=== PATIENT | male | born 1990 | race African-American/Black ===

== ENCOUNTER 2024-04-06 16:19 | Emergency (ER) | payer SELFPAY ==
[2024-04-06 16:23] VITALS: BP 154/79; PULSE 74; RESP 16; TEMP 36.2; O2SAT 100
--- NOTE | 2024-04-06 16:23 | ED.GENADUL_ITS ---
Discharge Plan Disposition Patient Disposition: Home Condition: Stable Discharge Details Clinical Impression: Rhabdomyolysis, Hematuria Primary Care Provider: Unknown,Unknown ED Provider: Shreyas Garcia Home Meds and New Rx's Prescriptions: No Action No Known Home Meds Discharge Instructions Instructions: Rhabdomyolysis, Blood in Urine (Hematuria), Adult ED Additional Instructions: You were seen in the emergency department for your 1 for lower abdominal trauma last week following on a football cleat and then repeated trauma at a football game yesterday. He have some blood in your urine but there does not appear to be any acute hollow or solid abdominal organ injury on your CT scan, your bladder is not perforated. You likely have some contusion to structures around the bladder or kidneys with some seepage of blood into the genitourinary system. He had some evidence of rhabdomyolysis which is when your body is exhausted from exertion, and it starts eat your own muscle as a source of energy rather than glucose, protein or fats. The treatment for this is aggressive hydration which we performed with 3 L of IV fluids today with improvement of your c ondition. Please try to stay well-hydrated the next few days, take it easy try to avoid further abdominal trauma until your hematuria or dark urine resolves. Please return to the emergency department for severe increase in flank or abdominal pain especially with continued dark urine despite aggressive hydration, any fevers, nausea or vomiting or profound weakness. Referrals: [facility] [Provider Group] Discharge Data Discharge Date/Time-TO BE ENTERED AT DEPARTURE: 04/06/24 22:23 HPI General Date/Time Provider Initiated Documentation: 04/06/24 16:23 . HPI Narrative: 33 year-old male presents to ED today by POV/ambulating with a chief complaint of lower abdominal pain, dark colored urine with onset after rough tackle in football game yesterday- the prior week he had also fallen onto another players football cleat to his lower abdomen- thought nothing of it at the time and improved, but now had additional trauma to the area at yesterdays game. Quality described as generalized lower abdominal pain- very dark urine, no radiation to fever, severe flank pain, nausea/vomiting, dysuria, new sexual partners, bowel changes. Severity is described as moderate. Palliating factors include nothing attempted. Provoking factors include nothing specific. Events leading up to the incident/Associated Symptoms: Patient denies history of sickle cell disease, denies prior kidney or bladder issues. Patient not anticoagulated. Related Data Home Medications ?Medication ?Instructions ?Recorded ?Confirmed Unknown [No Known Home Meds] 04/06/24 04/06/24 Review of Systems All systems reviewed & are unremarkable except as noted in HPI and below Exam Narrative Exam Narrative: GENERAL APPEARANCE: Well-nourished, non-toxic, awake and alert, atraumatic, no acute distress. SKIN: Warm, normal for ethnicity, dry, intact, without rashes/lesions/ulcer ations. HEAD: Normocephalic, atraumatic, normal hair distribution for gender/age. EYES: Normal conjunctiva, no exudates on lids/lashes. ENT: Nares patent, no circumoral cyanosis, no facial swelling NECK: Supple, trachea midline, painless cervical ROM. LUNGS/CHEST: Lungs CTA bilaterally- no rhonchi/rales/wheezes diffusely, non- labored respirations, normal A/P diameter, symmetrical expansion, no chest wall deformity HEART (CV/PV): Regular rate and rhythm without murmur, no peripheral edema, no JVD. ABDOMEN: Soft, non-distended, no guarding, R CVA tenderness, negative Black's, no Rovsing's, mild R lower abdominal tenderness. MSK: Normal ROM, no swelling/deformity to bilateral UEs or LEs, moving all extremities without weakness, no cyanosis, spine midline without tenderness, normal curvature. NEURO: Mental Status AAOx4 - alert to person, place, time, events No facial droop, no forehead involvement. Motor: No focal weakness - strength 5/5 in bilateral UEs and LEs, proximal and distal, symmetric. Sensory: sensation intact to light touch globally. Gait normal: patient ambulated without ataxia into ED room. PSYCH: euthymic, cooperative, pleasant, appropriate speech Medical Decision Making This dictation utilizes [id number] dictation software and may contain unedited grammatical errors. 33 year-old male presents to ED today by POV/ambulating with a chief complaint of lower abdominal pain, dark colored urine with onset after rough tackle in football game yesterday- the prior week he had also fallen onto another players football cleat to his lower abdomen- thought nothing of it at the time and improved, but now had additional trauma to the area at yesterdays game. Quality described as generalized lower abdominal pain- very dark urine, no radiation to fever, severe flank pain, nausea/vomiting, dysuria, new sexual partners, bowel changes. Severity is described as moderate. Palliating factors include nothing attempted. Provoking factors include nothing specific. Events leading up to the incident/Associated Symptoms: Patient denies history of sickle cell disease, denies prior kidney or bladder issues. Patients' medical history: noncontributory - otherwise healthy. Family and social history: very active, significant physical exertion often. Pertinent exam findings / vital signs include right-sided lower abdominal tenderness suprapubic tenderness, mild right CVA tenderness to percussion, nonperitoneal abdomen, benign cardiopulmonary exam, neuro intact, nontoxic. Differential / pathologies of concern include bladder rupture, renal contusion, rhabdomyolysis, sickle cell, generalized abdominal contusion. Diagnostic studies of: -CBC, lactate, CMP, lipase, UA, type and screen, CK > repeat CK and UA, NG/GC send out. CT Renal wo. -CBC shows no anemia, no leukocytosis-do not suspect hemorrhage, platelet count normal -Lactate negative - do not suspect perforated abdominal organ or -CMP shows mildly elevated creatinine at 1.4, LFTs within normal limits -Lipase negative -CK initially elevated to 450s, repeat 353 > mild rhabdomyolysis -initial UA has nitrites > reflex to STI testing -repeat UA shows clearing of all abnormalities, improvement of specific gravity, no nitrites -CT renal without acute abnormality Interventions of: -3 L IV fluids of 1 dose IV ceftriaxone for empiric UTI coverage. ED Course/Assessment/Plan: 33-year-old male patient presents after lower abdominal trauma falling on a football cleat last week during a game, does significant physical activity outdoors in the heat, was playing in another football game last night suffered a few rough tackle is now having very dark urine, CT is reassuring for no acute abnormality or hydronephrosis of the kidneys, no kidney stone is seen, his initial labs showed elevated CK indicating mild rhabdomyolysis and he was treated with aggressive fluid resuscitation with improvement of both his urine and CK, discontinued antibiotics at that time with repeat UA being benign, he has reassuring lab for no significant bleeding or infection, stressed staying well-hydrated and strict return criteria for no clearance of dark urine with continued flank pain. Findings not consistent with sepsis, perforated abdominal viscous, pyelo/hydronephrosis. Disposition of Rhabdomyolysis. Patient verbalized understanding of the plan and return to ED criteria and engaged in shared decision making. Medical Records Medical records reviewed: Yes I reviewed the patient's medical records. Imaging Data Radiologic Study: Attestation: I personally reviewed and interpreted this imaging study as follows: Imaging: CT Scan Radiologist's impression: Exam: CT Abdomen And Pelvis With Contrast Exam date and time: 04/06/2024 6:01 PM Age: 33 years old Clinical indication: Patient HX: Hematuria from trauma, football tackle TECHNIQUE: Imaging protocol: Computed tomography of the abdomen and pelvis with contrast. COMPARISON: No relevant prior studies available. FINDINGS: Lungs: Lung bases clear. Diaphragm: Elevation of the right hemidiaphragm, nonspecific but unusual in a patient of this age. Liver: Normal appearing liver. Gallbladder and biliary ducts: Gallbladder collapsed and not well evaluated but grossly unremarkable, as seen. No calcified gallstones seen. No biliary dilatation. Pancreas: Normal appearing pancreas. Spleen: Normal appearing spleen. Adrenal glands: Normal appearing adrenal glands. Kidneys and ureters: Normal appearing kidneys. No hydronephrosis. No perinephric edema or perinephric fluid. No ureterectasis or obstructing ureteral stones. Stomach and bowel: No oral contrast. Stomach partially decompressed. No small bowel dilatation to suggest obstruction. Colon largely well evacuated of fecal material. No evidence of diverticulitis or colitis. Appendix: Normal appendix. Intraperitoneal space: No gross ascites or free air. Vasculature: Normal caliber abdominal aorta. Lymph nodes: No pathologically enlarged mesenteric, retroperitoneal, or pelvic sidewall lymph nodes. Urinary bladder: Urinary bladder partially collapsed but grossly unremarkable, as seen. Reproductive: Normal-appearing prostate gland and seminal vesicles. Bones/joints: Focal sclerosis and bony irregularity along the anterior aspect of the right 4th and 5th ribs adjacent to the costochondral junctions with an appearance suggesting incompletely healed rib fractures. Well corticated defect through the tip of the left L4 transverse process suggesting an old fracture or possibly a developmental appearance, images 55 of series 4 and 39 of series 5. No acute fracture seen among the bones of the abdomen or pelvis. Soft tissues: No significant ventral or inguinal hernia. IMPRESSION: 1. No acute visceral or bony injury seen in the abdomen or pelvis. 2. Incompletely healed subacute-old fractures through the anterolateral aspect of the right 4th and 5th ribs adjacent to the costochondral junctions. Dictated and Authenticated by: Jose Gao MD. Lab Data Lab results reviewed: Yes I reviewed the patient's lab results. Labs: 04/06/24 16:27 Urine - Reflex from Ua Urine Culture - Final Gram Positive Myla,Mixed Laboratory Tests Range/Units 04/06/24 04/06/24 04/06/24 16:27 16:52 20:38 WBC (4.4-10.8) 10^3/uL 6.82 RBC (4.36-5.78) 10^6/uL 5.06 Hgb (13.5-17.5) g/dL 15.1 Hct (40.0-50.0) % 43.5 MCV (80-95) fL 86 MCH (27.0-33.0) pg 29.8 MCHC (32.0-36.0) % 34.7 RDW (11.8-14.1) % 11.7 L Plt Count (130-400) 10^3/uL 212 MPV (8.0-11.0) fL 10.0 Immature Gran % % 0.3 Neutrophils % % 62.6 Lymphocytes % % 30.5 Monocytes % % 5.6 Eosinophils % % 0.7 Basophils % % 0.3 Nucleated RBC % (0.0-0.3) % 0.0 Absolute Neutrophils (1.2-6.7) 10^3/uL 4.27 Absolute Lymphocytes (1.2-3.4) 10^3/uL 2.08 Absolute Monocytes (0.1-0.8) 10^3/uL 0.38 Absolute Eosinophils (0.0-0.7) 10^3/uL 0.05 Absolute Basophils (0.0-0.2) 10^3/uL 0.02 VBG Lactate (0.6-1.4) mmol/L 1.3 Sodium (136-145) mmol/L 143 Potassium (3.5-5.1) mmol/L 3.7 Chloride (98-107) mmol/L 105 Carbon Dioxide (21.0-32.0) mmol/L 29.6 Anion Gap (3-11) mmol/L 8.4 BUN (7-18) mg/dL 9 Creatinine (0.70-1.30) mg/dL 1.4 H Est GFR (CKD-EPI 2020) (mL/min/1.73m2) 68.06 Glucose (74-106) mg/dL 112 H Calcium (8.5-10.1) mg/dL 9.4 Total Bilirubin (0.2-1.0) mg/dL 0.48 AST (15-37) U/L 18 ALT (16-63) U/L 43 Alkaline Phosphatase (46-116) U/L 83 Creatine Kinase (39-308) U/L 463 H 353 H Total Protein (6.4-8.2) g/dL 7.4 Albumin (3.4-5.0) g/dL 4.1 Lipase (16-77) U/L 38 Urine Color (Yellow) Brown Urine Clarity (Clear) Turbid Urine pH (5-8) 6.0 Ur Specific [place] (1.005-1.025) >= 1.030 H Urine Protein (Neg-Trace) mg/dL 100 H Urine Ketones (Negative) mg/dL Trace H Urine Blood (Negative) Large H Urine Nitrite (Negative) Positive H Urine Bilirubin (Negative) Small H Urine Urobilinogen (Up to 0.2) mg/dL 0.2 Ur Leukocyte Esterase (Negative) Negative Urine RBC (0-2) HPF >50 H Urine WBC Not Applicable Ur Epithelial Cells Not Applicable Urine Crystals Not Applicable Urine Bacteria Not Applicable Urine Casts (Negative) LPF Urine Mucus Not Applicable Ur Culture Indicated? Yes Urine Glucose (Negative) mg/dL Negative Chlamydia DNA Probe (Negative) Negative Chlamydia/GC DNA Source Not Applicable N.gonorrhoeae DNA Probe (Negative) Negative ABO/Rh B Positive Antibody Screen NEGATIVE Range/Units 04/06/24 21:21 WBC (4.4-10.8) 10^3/uL RBC (4.36-5.78) 10^6/uL Hgb (13.5-17.5) g/dL Hct (40.0-50.0) % MCV (80-95) fL MCH (27.0-33.0) pg MCHC (32.0-36.0) % RDW (11.8-14.1) % Plt Count (130-400) 10^3/uL MPV (8.0-11.0) fL Immature Gran % % Neutrophils % % Lymphocytes % % Monocytes % % Eosinophils % % Basophils % % Nucleated RBC % (0.0-0.3) % Absolute Neutrophils (1.2-6.7) 10^3/uL Absolute Lymphocytes (1.2-3.4) 10^3/uL Absolute Monocytes (0.1-0.8) 10^3/uL Absolute Eosinophils (0.0-0.7) 10^3/uL Absolute Basophils (0.0-0.2) 10^3/uL VBG Lactate (0.6-1.4) mmol/L Sodium (136-145) mmol/L Potassium (3.5-5.1) mmol/L Chloride (98-107) mmol/L Carbon Dioxide (21.0-32.0) mmol/L Anion Gap (3-11) mmol/L BUN (7-18) mg/dL Creatinine (0.70-1.30) mg/dL Est GFR (CKD-EPI 2020) (mL/min/1.73m2) Glucose (74-106) mg/dL Calcium (8.5-10.1) mg/dL Total Bilirubin (0.2-1.0) mg/dL AST (15-37) U/L ALT (16-63) U/L Alkaline Phosphatase (46-116) U/L Creatine Kinase (39-308) U/L Total Protein (6.4-8.2) g/dL Albumin (3.4-5.0) g/dL Lipase (16-77) U/L Urine Color (Yellow) [place] Urine Clarity (Clear) Sl Cloudy Urine pH (5-8) 5.5 Ur Specific [place] (1.005-1.025) 1.015 Urine Protein (Neg-Trace) mg/dL Trace Urine Ketones (Negative) mg/dL Negative Urine Blood (Negative) Large H Urine Nitrite (Negative) Negative Urine Bilirubin (Negative) Negative Urine Urobilinogen (Up to 0.2) mg/dL 0.2 Ur Leukocyte Esterase (Negative) Negative Urine RBC (0-2) HPF >50 H Urine WBC Negative Ur Epithelial Cells Rare Urine Crystals Negative Urine Bacteria Few Urine Casts (Negative) LPF 0-2 Hyaline Urine Mucus Negative Ur Culture Indicated? No Urine Glucose (Negative) mg/dL Negative Chlamydia DNA Probe (Negative) Chlamydia/GC DNA Source N.gonorrhoeae DNA Probe (Negative) ABO/Rh Antibody Screen Quality:SDOH Health Related Social Needs: No Data to Display PFSH All Active Problems (Updated 04/06/24 @ 22:17 by MARIA VICTORIA Zamora) Hematuria (Acute) Rhabdomyolysis (Acute) Social History Smoking/Tobacco Use Status: Never Smoking risk assessment performed?: Yes Alcohol Intake: never Drug use: Never Substance use type: does not use Housing: apartment Do you feel safe at home: Yes Do you feel safe in your relationship?: Yes
--- NOTE | 2024-04-06 16:30 | DI.CT_ITS ---
Exam(s) CT ABDOMEN PELVIS W EXAM: CT ABDOMEN PELVIS W CLINICAL HISTORY: hematuria from trauma, football tackle TECHNIQUE: Imaging Protocol: Axial computed tomography images with coronal and sagittal reformatted images were created and reviewed. CONTRAST MATERIAL: Intravenous: Omnipaque 350 Contrast volume:98 mL Oral: No COMPARISON: No exams were available for comparison FINDINGS: ABDOMEN: Lung Bases: Normal where visualized. Liver: Normal density. No measurable mass. Portal, Superior Mesenteric, and Splenic Veins: Unremarkable. Gallbladder and Biliary Tract: No radiodense calculus or dilation. Pancreas: Normal density, no abnormal calcifications or inflammatory process. Spleen: Normal. Adrenals: No masses seen. Kidneys: Normal size, contour and axis. No radiodense stones or obstructive uropathy. No masses seen. Abdominal Aorta: Abdominal portion non-dilated. Bowel: No obstruction or bowel wall thickening. No evidence of appendicitis. Peritoneal Cavity: No ascites, collection or mesenteric inflammatory response. No free air. Lymph Nodes: Within normal limits. Bones: Within normal limits for the patient's age. There is a tiny osseous density at the tip of the left transverse process of the L4 vertebra. The bones appear all well corticated. The suggest a ch ronic finding. No surrounding edema is seen. There is some sclerosis seen at the costochondral junc tion of the right 4th and 5th ribs which may represent old healed fractures. No acute fracture is id entified. Soft Tissues: Unremarkable. PELVIS: Bladder: Symmetric distention, no gross wall thickening. Reproductive Organs: Unremarkable as visualized. Lymph Nodes: Within normal limits. Bones: Within normal limits for the patient's age. IMPRESSION: 1. No acute abdominal or pelvic organ injury. 2. No acute fracture or dislocation. 3. The kidneys are grossly unremarkable as is the urinary bladder. RADIATION DOSE DELIVERED: Total DLP DATA REPOSITORY: All CT scans at this facility are submitted to the National Radiology Data Registry (NRDR) Dose Index Registry (DIR) with the [employer] (ACR). RADIATION OPTIMIZATION: All CT scans at this facility use at least one of these dose optimization te chniques: automated exposure control; mA and/or kV adjustment per patient size (includes targeted exa ms where dose is matched to clinical indication); or iterative reconstruction.
[2024-04-06 16:34] VITALS: PULSE 74; RESP 16; TEMP 36.2; O2SAT 100
[2024-04-06] MEDS: Normal Saline 1,000 ML 1000 ML IV ×3 (16:58→20:03)
[2024-04-06 17:00] LABS: Lactate 1.3 mmol/L (0.6-1.4)
[2024-04-06 17:01] LABS: Abs Immature Grans 0.02 10^3/uL (0.0-0.06); Absolute Basophil Count 0.02 10^3/uL (0.0-0.2); Absolute Eosinophil Count 0.05 10^3/uL (0.0-0.7); Absolute Lymphocyte Count 2.08 10^3/uL (1.2-3.4); Absolute Monocyte Count 0.38 10^3/uL (0.1-0.8); Absolute Neutrophil Count 4.27 10^3/uL (1.2-6.7); Basophils % 0.3 %; Eosinophils % 0.7 %; HCT 43.5 % (40.0-50.0); HGB 15.1 g/dL (13.5-17.5); Immature Grans % 0.3 %; Lymphocytes % 30.5 %; MCH 29.8 pg (27.0-33.0); MCHC 34.7 % (32.0-36.0); MCV 86 fL (80-95); Monocytes % 5.6 %; Neutrophils % 62.6 %; Platelet Count 212 10^3/uL (130-400); RBC 5.06 10^6/uL (4.36-5.78); RDW 11.7 % (11.8-14.1); RDW-SD 37.2 fL; WBC 6.82 10^3/uL (4.4-10.8)
[2024-04-06 17:21] LABS: ALT 43 U/L (16-63); AST 18 U/L (15-37); Albumin 4.1 g/dL (3.4-5.0); Alkaline Phosphatase 83 U/L (46-116); Anion Gap 8.4 mmol/L (3-11); BUN 9 mg/dL (7-18); Bilirubin, Total 0.48 mg/dL (0.2-1.0); CO2 29.6 mmol/L (21.0-32.0); CREATININE 1.4 mg/dL (0.70-1.30); Chloride 105 mmol/L (98-107); Estimated GFR 68.06 (mL/min/1.73m2); Glucose 112 mg/dL (74-106); Lipase 38 U/L (16-77); Potassium 3.7 mmol/L (3.5-5.1); Sodium 143 mmol/L (136-145); Total Protein 7.4 g/dL (6.4-8.2)
[2024-04-06 17:27] LABS: Calcium 9.4 mg/dL (8.5-10.1)
[2024-04-06 17:50] LABS: Creatine Kinase 463 U/L (39-308)
[2024-04-06] MEDS: Omnipaque 350 MG/ML 100 ML BTL IJ (17:58)
[2024-04-06] MEDS: Normal Saline - Diluent 50 ML VIAL IJ (18:00)
[2024-04-06 18:57] LABS: Bilirubin Small (Negative); Blood Large (Negative); Clarity Turbid (Clear); Glucose Negative (Negative); Ketones Trace mg/dL (Negative); Leukocyte Esterase Negative (Negative); Nitrite Positive (Negative); Specific Gravity >= 1.030 (1.005-1.025); Urobilinogen 0.2 mg/dL (Up to 0.2)
[2024-04-06 19:05] LABS: RBC >50 HPF (0-2)
[2024-04-06 19:06] LABS: C & S Indicated? Yes
--- NOTE | 2024-04-06 19:28 | DI.VRAD_ITS ---
PROCEDURE INFORMATION: Exam: CT Abdomen And Pelvis With Contrast Exam date and time: 04/06/2024 6:01 PM Age: 33 years old Clinical indication: Patient HX: Hematuria from trauma, football tackle TECHNIQUE: Imaging protocol: Computed tomography of the abdomen and pelvis with contrast. COMPARISON: No relevant prior studies available. FINDINGS: Lungs: Lung bases clear. Diaphragm: Elevation of the right hemidiaphragm, nonspecific but unusual in a patient of this age. Liver: Normal appearing liver. Gallbladder and biliary ducts: Gallbladder collapsed and not well evaluated but grossly unremarkable, as seen. No calcified gallstones seen. No biliary dilatation. Pancreas: Normal appearing pancreas. Spleen: Normal appearing spleen. Adrenal glands: Normal appearing adrenal glands. Kidneys and ureters: Normal appearing kidneys. No hydronephrosis. No perinephric edema or perinephric fluid. No ureterectasis or obstructing ureteral stones. Stomach and bowel: No oral contrast. Stomach partially decompressed. No small bowel dilatation to suggest obstruction. Colon largely well evacuated of fecal material. No evidence of diverticulitis or colitis. Appendix: Normal appendix. Intraperitoneal space: No gross ascites or free air. Vasculature: Normal caliber abdominal aorta. Lymph nodes: No pathologically enlarged mesenteric, retroperitoneal, or pelvic sidewall lymph nodes. Urinary bladder: Urinary bladder partially collapsed but grossly unremarkable, as seen. Reproductive: Normal-appearing prostate gland and seminal vesicles. Bones/joints: Focal sclerosis and bony irregularity along the anterior aspect of the right 4th and 5th ribs adjacent to the costochondral junctions with an appearance suggesting incompletely healed rib fractures. Well corticated defect through the tip of the left L4 transverse process suggesting an old fracture or possibly a developmental appearance, images 55 of series 4 and 39 of series 5. No acute fracture seen among the bones of the abdomen or pelvis. Soft tissues: No significant ventral or inguinal hernia. IMPRESSION: 1. No acute visceral or bony injury seen in the abdomen or pelvis. 2. Incompletely healed subacute-old fractures through the anterolateral aspect of the right 4th and 5th ribs adjacent to the costochondral junctions. Dictated and Authenticated by: Jose Gao MD. Ordering:[id number] Pritchett MD
[2024-04-06] MEDS: cefTRIAXone 2 GM/50 ML BAG IVPB (20:45)
[2024-04-06 21:01] LABS: Creatine Kinase 353 U/L (39-308)
[2024-04-06 22:00] LABS: Bilirubin Negative (Negative); Blood Large (Negative); Clarity Sl Cloudy (Clear); Glucose Negative (Negative); Ketones Negative (Negative); Leukocyte Esterase Negative (Negative); Nitrite Negative (Negative); Specific Gravity 1.015 (1.005-1.025); Urobilinogen 0.2 mg/dL (Up to 0.2); pH 5.5 (5-8)
[2024-04-06 22:11] LABS: Bacteria Few HPF (Negative); C & S Indicated? No; Casts 0-2 Hyaline LPF (Negative); Crystals Negative HPF (Negative); Epithelial Cells Rare HPF (Negative); Mucus Negative (Negative); RBC >50 HPF (0-2); WBC Negative HPF (0-5)
[2024-04-06 22:17] VITALS: BP 130/86; PULSE 82; RESP 18; TEMP 36.6; O2SAT 99
[2024-04-08 12:20] LABS: Chlamydia Result Negative (Negative); GC Result Negative (Negative)
== END 2024-04-06 22:23 | disposition home or self-care (01) ==
PROVIDERS: Emergency Provider Physician Assistant
DX: T79.6XXA Traumatic ischemia of muscle, initial encounter (principal); R31.9 Hematuria, unspecified; W03.XXXA Other fall on same level due to collision with another person, initial encounter; Y93.61 Activity, american tackle football; Y92.39 Other specified sports and athletic area as the place of occurrence of the external cause
CPT/HCPCS: 36415; 80053; 82550; 83690; 86850; 86900; 86901; 87491; 87591; 96361; 96365; 99285; 74177; 81003; 81015; 83605; 85025; 87086; 99284; J0696; J3490

== ENCOUNTER 2024-04-07 21:59 | Outpatient (CLI) | payer SELFPAY ==
[2024-04-07 18:38] LABS: HBs Antibody, Quant 4.3 mIU/mL (See Note); Hepatitis B Surface Ab Negative (See Note)
[2024-04-08 10:50] LABS: Varicella IgG Antibody Positive (See Note)
[2024-04-08 10:56] LABS: Measles IgG Antibody Positive (See Note)
[2024-04-08 11:09] LABS: Mumps Antibody IgG Negative (See Note); Rubella IgG Ab (UVM) Negative (See Note)
[2024-04-09 12:25] LABS: TB Interpretation Negative (Negative)
== END 2024-04-07 22:00 | disposition home or self-care (01) ==
LOC: LBO 21:59
PROVIDERS: Visit Provider Nurse Practitioner Family
DX: Z02.1 Encounter for pre-employment examination (principal)
CPT/HCPCS: 36415; 86706; 86787; 86480; 86735; 86762; 86765

== ENCOUNTER 2025-02-20 13:02 | Emergency (ER) | payer MEDICAID, SELFPAY ==
[2025-02-20 13:09] VITALS: BP 162/100; PULSE 72; RESP 18; TEMP 36.8; O2SAT 99
--- NOTE | 2025-02-20 13:16 | W.ED.GENAD ---
Discharge Plan Disposition Patient Disposition: Home Condition: Good Discharge Details Clinical Impression: Finger laceration Primary Care Provider: None,None ED Provider: Becky Campbell Home Meds and New Rx's Prescriptions: Continued albuterol sulfate 90 mcg/actuation HFA aerosol inhaler 2 puff inhalation Q6H PRN (Reason: shortness of breath or wheezing) Qty: 8.5 0RF Discharge Instructions Instructions: Laceration Repair With Stitches ED Additional Instructions: Your wound was cleaned and closed with sutures today. 7 stitches were placed. I am concerned that some of the skin was very superficial and lacks blood flow to remain viable. This will likely darken in color and fall off. However, in the meantime we will act as a good dressing and help to allow for the underlying tissue to heal. Please monitor wounds for signs of infection including redness, warmth, drainage, increased pain, fever/chills. If you develop these or other new/worsening symptoms please seek care urgently once again. Please leave current dressing on for the next 24 hours, after that time you may wash with running water but please do not soak or submerge this will increase your risk of infection. You may then cover with a bandage and apply the finger splint provided. Please return in 7 days for wound evaluation and suture removal. Stand Alone Forms: Work Release Discharge Data Discharge Date/Time-TO BE ENTERED AT DEPARTURE: 02/20/25 14:14 HPI General Date/Time Provider Initiated Documentation: 02/20/25 13:16. Limitations to Documentation: no limitations. Information obtained by: patient, family (Significant other) and RN notes reviewed. History of Present Illness 34 year old M presents to the emergency department with the chief complaint of Laceration left index finger, described as severe, and is localized to the left and upper extremity. Patient reports no radiation. Patient started experiencing this minute(s) and it has been constant. Immobilization improves symptom(s), Movement worsens symptoms . Patient notes no other symptoms.. Patient did receive the following treatments prior to arrival, none Related Data Home Medications ?Medication ?Instructions ?Recorded ?Confirmed albuterol sulfate 90 mcg/actuation 2 puff inhalation Q6H PRN 10/10/24 02/20/25 aerosol inhaler shortness of breath or wheezing #8.5 grams Previous Rx's ?Medication ?Instructions ?Recorded albuterol sulfate 90 mcg/actuation 2 puff inhalation Q6H PRN 10/10/24 aerosol inhaler shortness of breath or wheezing #8.5 grams Allergies Allergy/AdvReac Type Severity Reaction Status Date / Time venom-honey bee AdvReac Mild Anaphylaxis Verified 02/20/25 13:19 General Stated Complaint: Laceration JOSEP: 4 Review of Systems Constitutional Constitutional: Reports as per HPI, Denies chills and Denies fever(s) Musculoskeletal Musculoskeletal: Reports as per HPI Integumentary/Breasts Skin/Breast: Reports as per HPI Neurologic Neurologic: Reports as per HPI, Denies sensory deficit and Denies paresthesias Exam Const General: cooperative, healthy appearing, comfortable, no acute distress and well developed Nutritional Appearance: average body habitus and well nourished Orientation: alert and awake Resp Effort & Inspection: normal respiratory effort, able to speak in complete sentences and no respiratory distress Cardio Rate: regular rate Rhythm: regular rhythm Skin Trauma: laceration Neuro General: patient alert and patient awake Cognition: normal cognition Speech: speech normal Gait: normal gait Sensory Exam: no sensory deficits noted Extrem Hand/finger images:  1. Area of complex lacerations. Patient has several different flaps and many of them being very superficial in the skin pale. Fatty subcutaneous tissue is visualized but unable to visualize tendon or bone. Sensation is intact distal to the laceration. He is full range of motion in has intact flexion against resistance at the PIP and DIP joints. Capillary refill is intact. Course Vital Signs Vital signs: Vital Signs Temperature 36.8 C 02/20/25 13:09 Pulse 72 02/20/25 13:09 Respiratory Rate 18 02/20/25 13:09 Blood Pressure 162/100 H 02/20/25 13:09 Pulse Oximetry 99 02/20/25 13:09 Temperature 36.8 C 02/20/25 13:09 Temperature Source Oral 02/20/25 13:09 Pulse 72 02/20/25 13:09 Respiratory Rate 18 02/20/25 13:09 Blood Pressure 162/100 H 02/20/25 13:09 Blood Pressure Position Sitting 02/20/25 13:09 Pulse Oximetry 99 02/20/25 13:09 Oxygen Delivery Method Room Air 02/20/25 13:09 Oxygen Flow Rate 0 02/20/25 13:09 Procedure Laceration Laceration 1: Date of Procedure: 02/20/25 Time of procedure: 14:07 Provider that performed the procedure: Becky Mosquera Time Out Performed: Yes Patient Consented: Verbally Site: hand Side (If applicable): left Description: flap, irregular and clean Depth: simple, single layer Local anesthetic: Lidocaine 1% Amount of anesthesia used (mL): 5 Pre-repair:: wound explored, irrigated extensively and deep structures intact Skin layer closed with: nylon Suture size: 5-0 Number of sutures:: 7 Technique: simple, interrupted Medical Decision Making Patient is a pleasant [id number] 34-year-old male, brought in by significant other, chief complaint of left index finger laceration. 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 He reports his tetanus is up-to-date. He denies other injury at the time of the incident. Denies any numbness or tingling. On exam, patient appears anxious but otherwise nontoxic. He is 2+ distal pulses. Sensation intact distal to the laceration. He is able to flex against resistance at the PIP and DIP joint of the affected digit. Capillary refill is intact. No active bleeding. The laceration itself has several irregular flaps all of which seem to be fairly superficial although subcutaneous fat is able to be visualized. It appears that the blade may have been at an angle but allowed separation between the subcutaneous and the superficial layers of skin. Wound itself is more in a Y configuration. Patient I discussed risk/benefits as well as expected procedural steps associated with closure of the wound. I do not see any indication to suggest deep structure involvement or neurovascular compromise at this time. He voiced understanding and wished to proceed. Please see procedure note. Using standard sterile technique, the patient was given a digital block to the left index finger using 1% lidocaine plain. 5 cc were infiltrated with good anesthetic effect. Wound was then explored to base in a bloodless field no foreign body or debris noted. Finger tourniquet was utilized to help with the hemostatic effect. Wound was then copiously irrigated. Closure was then completed using simple interrupted sutures. We did discuss at length both before and during the closure however, that some of this skin does appear to be thin enough to not be viable. However, and using this as part of the closure, hoping that this will act as a biologic dressing and reinforce tissues while healing from the deeper layers and may occur. Patient tolerated the procedure well and wound edges were able to be reapproximated without any tension on the wound. Patient, his significant other and I discussed wound care at depth. A bulky sterile dressing was applied we will also send him home with a brace to apply after removal of the current dressing. We discussed signs symptoms of infection and when to seek care urgently once again. Given the proximity to the joint as well as location of the laceration, I do feel that bracing the finger for the next several days will help with discomfort as well as protect the sutures themselves. We discussed activities to avoid such as soaking and submerging. Return precautions discussed, he will return in 1 week for reevaluation and suture removal. All of his questions and concerns were addressed and he is in agreement this plan. [facility] All Active Problems (Updated 02/20/25 @ 14:08 by MARIA VICTORIA Shukla) Finger laceration (Acute) Social History Smoking/Tobacco Use Status: Never Smoking risk assessment performed?: Yes Alcohol Intake: never Drug use: Never Substance use type: does not use Housing: apartment Do you feel safe at home: Yes Do you feel safe in your relationship?: Yes
[2025-02-20] MEDS: Lidocaine/Epinephri/Tetracaine Topical Gel 3 ML (13:18)
== END 2025-02-20 14:14 | disposition home or self-care (01) ==
PROVIDERS: Emergency Provider Physician Assistant
DX: S61.211A Laceration without foreign body of left index finger without damage to nail, initial encounter (principal); W29.3XXA Contact with powered garden and outdoor hand tools and machinery, initial encounter
CPT/HCPCS: 12001; 99283; J2003

== ENCOUNTER 2025-05-28 04:21 | Outpatient (CLI) | payer SELFPAY ==
--- NOTE | 2025-05-28 05:15 | ETT_ITS ---
APPROVED REPORT Exam: Exercise Treadmill Patient Location: Out-Patient Room/Bed: Stress Nurse: Dameon Godinez RN Ordering Provider:SUSIE SÁNCHEZ, Contact Number: [phone] BMI: 36.11 Baseline Rhythm: Sinus Rhythm. Comment: Resting ST-T abnormalities. Indications: Palpitations; Tachycardia. Medical History Medical History: ADD; Anxiety; Depression; Hematuria; Fast Heart Rate; Palpitations; SOB. Cardiac Medications: Albuterol Sulfate. Allergies: Honey Bee Venom. Cardiac Risk Factors: Current Smoker. Previous Cardiac Procedures: None. Pretest Chest Pain Characteristics: None. Exercise History: Physically active. Physical Disabilities: None. Lung Sounds: Clear bilaterally throughout, anterior and posterior. Heart Sounds: S1 and S2 auscultated. Stress Test Details Test: Exercise stress testing was performed using a Jonathon protocol. Rest Stress HR Resting HR Supine: 74 bpm Max Heart Rate (APMHR): 186 bpm Resting HR Standin bpm Target HR (85% APMHR): 158 bpm Max HR Achieved: 182 bpm % of APMHR: 98 Recovery HR: 103 bpm HR response to stress: Normal HR response to stress. BP Resting BP Supine: 128/88 mmHg Resting BP Standin/90 mmHg Max BP: 170/90 mmHg Recovery BP: 120/70 mmHg BP response to stress: Normal blood pressure response to stress. ECG Resting ECG: Sinus Rhythm. Ectopy: None. Comment: Resting ST-T abnormalities. Stress ECG: Sinus Tachycardia. ST Change: No significant ST segment changes noted; Nondiagnostic resting ST abnormalities. Arrhythmia: Rare PVC. Comment: Resting ST-T abnormalities. Recovery ECG: Sinus Tachycardia. Recovery ST Change: No significant ST segment changes noted; Nondiagnostic resting ST abnormalities. Recovery Arrhythmia: Rare PVC's. Comment: Resting ST-T abnormalities. Clinical Reason for Termination: Target HR Achieved; Dyspnea; Fatigue. Stress Symptoms: Dyspnea; General Fatigue. Exercise duration: 09 min55 sec Highest Stage Reached: Stage 4: 4.2 mph at 16% grade. Exercise capacity: 11.65 METs Angina Score: None Palafox Treadmill Score: 9.0 Rate Pressure Product: [id number] Stress ECG Conclusion 1. Resting electrocardiogram showed minor nondiagnostic ST-T abnormalities 2. Patient exercised on the Jonathon protocol completed workload of 12 METS, excellent exercise capacity 3. Normal heart rate and blood pressure response to exercise. Patient achieved 98% of maximal predicted heart rate for age 4. There was no electrocardiographic evidence of myocardial ischemia 5. There were no significant dysrhythmias Palafox Treadmill Score is 9.0 which is Low risk. Critical Notification Critical Value: Yes Physician Notified Date: 05/28/2025 Time: 826 Physician Name: Dianne Carlisle MD Response Time: 1 minute. Stress Test Summary STAGE Time (mins) Speed (mph) Grade (%) HR BP SpO2 SYMPTOMS METS Supine 74 128/88 96 Standing 77 130/90 97 1 3 1.7 10 119 120/74 95 4.5 2 6 2.5 12 143 170/90 96 7 3 9 3.4 14 169 96 Pt. c/o mild shortness of breath. 10 4 12 4.2 16 182 96 Pt. c/o severe shortness of breath and fatigue. Pt. requesting to stop the stress test. 13 1 min recovery 122 150/60 96 Pt. c/o severe shortness of breath. 3 min recovery 110 130/70 97 Pt. c/o moderate shortness of breath. 6 min recovery 108 120/70 97 Pt. c/o mild shortness of breath. 9 min recovery 103 Pt. denies any shortness of breath. Pt. was noted to have resting ST-T abnormalities on his EKG, specifically inverted T waves in leads III and aVF. Dr. Carlisle was notified at 08 and responded one minute later at 0828 stating that it was ok to proceed with the stress test. Pt. performed an exercise treadmill stress test using the Jonathon p rotocol. Stress test was stopped when pt. achieved a heart rate higher than his target heart rate, c/o severe shortness of breath, c/o fatigue, and requested to stop the stress test. Pt.'s shortness of breath had resolved and returned to baseline prior to the end of the stress test. Pt. was conversing pleasantly with nursing staff upon leaving the Stress Lab. Pt. left ambulatory in no apparent distress.
== END 2025-05-28 04:41 ==
PROVIDERS: PCP Nurse Practitioner Family; Visit Provider Internal Medicine Cardiovascular Disease
DX: R00.0 Tachycardia, unspecified (principal); R00.2 Palpitations
CPT/HCPCS: 93017